=== PATIENT | male | born 1980 | race Native Hawaiian/Other Pacific Islander ===

== ENCOUNTER 2018-04-01 16:49 | Emergency (ER) | payer OTHER ==
[~2018-04-01] VITALS: Ht 177.8 cm; Wt 99.8 kg
[2018-04-01 17:12] VITALS: BP 133/86; TEMP 98.2
== END 2018-04-01 17:33 | disposition home or self-care (01) ==
LOC: ED 16:49
DX: I82.402 Acute embolism and thrombosis of unspecified deep veins of left lower extremity (principal)
CPT/HCPCS: 99281

== ENCOUNTER 2018-04-02 08:43 | Outpatient (CLI) | payer OTHER | END 2018-04-02 20:11 | disposition home or self-care (01) | LOC: US 08:43 | DX: M79.604 Pain in right leg (principal) ==